=== PATIENT | male | born 1985 | race Caucasian/White ===

== ENCOUNTER 2019-08-13 00:50 | Emergency (ER) | payer BC ==
[2019-08-13 00:57] VITALS: TEMP 98.3
--- NOTE | 2019-08-13 01:01 | ED ---
Lower Extremity Injury HPI - General Chief Complaint: Extremity Injury, Lower Stated Complaint: RT ankle injury Time Seen by Provider: 08/13/19 01:00 Source: patient, family, RN notes reviewed, old records reviewed Mode of arrival: wheelchair Limitations: no limitations - History of Present Illness Initial Comments: This is a 31-year-old male DF for evaluation patient Dese for evaluation of back pain severe right ankle pain with right calcaneus pain. Patient hurt ankle and foot while jumping off his porch, patient suddenly patient does often. Denies significant intoxication currently. Not requiring pain currently. Patient has no other injuries noted no back pain no knee pain MD Complaint: ankle injury, foot injury (Right ankle right foot injury) -: days(s) Injury: Ankle: Right, Foot: Right Type of Injury: blunt Place: home Severity: severe Severity scale (1-10): 8 Improves With: nothing Worsens With: weight bearing Context: direct blow, jumping Associated Symptoms: swelling, unable to bear weight, able to partially bear weight - Related Data Allergies Allergy/AdvReac Type Severity Reaction Status Date / Time No Known Allergies Allergy Verified 08/13/19 00:57 Review of Systems ROS Statement: Those systems with pertinent positive or pertinent negative responses have been documented in the HPI. ROS Other: All systems not noted in ROS Statement are negative. Past Medical History Past Medical History: No Reported History History of Any Multi-Drug Resistant Organisms: None Reported Past Surgical History: Hernia Repair Past Psychological History: No Psychological Hx Reported Smoking Status: Former smoker Past Alcohol Use History: Occasional Past Drug Use History: None Reported General Exam Limitations: no limitations General appearance: alert, in no apparent distress Head exam: Present: atraumatic, normocephalic, normal inspection Eye exam: Present: normal appearance, PERRL, EOMI. Absent: scleral icterus, conjunctival injection, periorbital swelling ENT exam: Present: normal exam, mucous membranes moist Neck exam: Present: normal inspection. Absent: tenderness, meningismus, lymphadenopathy Respiratory exam: Present: normal lung sounds bilaterally. Absent: respiratory distress, wheezes, rales, rhonchi, stridor Cardiovascular Exam: Present: regular rate, normal rhythm, normal heart sounds. Absent: systolic murmur, diastolic murmur, rubs, gallop, clicks GI/Abdominal exam: Present: soft, normal bowel sounds. Absent: distended, tenderness, guarding, rebound, rigid Extremities exam: Present: normal inspection, full ROM, normal capillary refill, other (Severe right foot pain right extremity pain right heel pain). Absent: tenderness, pedal edema, joint swelling, calf tenderness Back exam: Present: normal inspection Neurological exam: Present: alert, oriented X3, CN II-XII intact Psychiatric exam: Present: normal affect, normal mood Skin exam: Present: warm, dry, intact, normal color. Absent: rash Course Vital Signs 08/13/19 08/13/19 00:53 02:23 Temperature 98.3 F Pulse Rate 106 H 79 Respiratory 20 18 Rate Blood Pressure 134/84 126/81 O2 Sat by Pulse 97 98 Oximetry - Reevaluation(s) Reevaluation #1: Medical record is reviewed Patient has pain control currently Procedures - Orthopedic Splinting/Casting Injury #1 Side: right Lower Extremity Injury Location: short leg Lower Extremity Immobilizer: posterior splint, stirrup splint Medical Decision Making - Medical Decision Making 33 male DF presents after jumping off landing on his right foot positive rinku caneus fracture, ankle splinted and patient can be discharged home - Radiology Data Radiology results: report reviewed (X-ray right ankle positive for calcaneus fracture), image reviewed Disposition Clinical Impression: Calcaneus fracture, right Disposition: HOME SELF-CARE Condition: Good Instructions (If sedation given, give patient instructions): Calcaneal Fracture (ED) Is patient prescribed a controlled substance at d/c from ED?: No Referrals: Terrell Zhao DO [Medical Doctor] - 1-2 days
--- NOTE | 2019-08-13 01:33 | XR ---
EXAMINATION TYPE: XR ankle complete RT DATE OF EXAM: 08/13/2019 COMPARISON: NONE HISTORY: Ankle pain TECHNIQUE: 3 views FINDINGS: There is soft tissue swelling around the ankle joint. There is nondisplaced fracture of the posterior calcaneus. Fracture is predominantly in the transverse direction. The subtalar joint is an atomic. IMPRESSION: Soft tissue swelling. Acute transverse fracture through the body of the calcaneus.
[2019-08-13] MEDS ORDERED: Acetaminophen-Codeine 300-30mg TAB PO STA (02:10)
[2019-08-13] MEDS ORDERED: ACET/COD 300 MG/30 MG STARTER PACK 6 TAB BTL PO STA (02:10)
[2019-08-13 02:25] VITALS: BP 126/81; PULSE 79; RESP 18
== END 2019-08-13 02:23 | disposition home or self-care (01) ==
LOC: EC 00:50
DX: S92.014A Nondisplaced fracture of body of right calcaneus, initial encounter for closed fracture (principal); Z87.891 Personal history of nicotine dependence; X58.XXXA Exposure to other specified factors, initial encounter; Y92.008 Other place in unspecified non-institutional (private) residence as the place of occurrence of the external cause
CPT/HCPCS: 99284

== ENCOUNTER → 2019-08-19 | Outpatient (CLI) | payer BC ==
--- NOTE | 2019-08-19 09:15 | CT ---
EXAMINATION TYPE: CT foot RT wo con DATE OF EXAM: 08/19/2019 COMPARISON: Right ankle 08/13/2019 No plain film of the foot submitted for correlation. HISTORY: presurgical calcaneus fracture CT DLP: 197 mGycm Automated exposure control for dose reduction was used. CT of the right foot submitted using [facility] protocol. Three-dimensional reconstructions. FINDINGS: Comminuted mildly displaced fracture is noted involving the posterior calcaneus. There is a minimal i ntra-articular involvement posteriorly posterior facet laterally. Cuboid also shows a comminuted frac ture with intra-articular involvement without significant displacement. No dislocation. Soft tissue s welling is present. IMPRESSION: TARSAL BONE FRACTURES DESCRIBED.
== END | disposition home or self-care (01) ==
LOC: RADCTMAIN 08:10
PROVIDERS: ATTEND Orthopaedic Surgery
DX: S92.001A Unspecified fracture of right calcaneus, initial encounter for closed fracture (principal)

== ENCOUNTER 2023-08-12 20:43 | Emergency (ER) | payer BC ==
[2023-08-12 21:21] VITALS: TEMP 98.4
--- NOTE | 2023-08-12 21:56 | ED ---
Chest Pain HPI - General Chief Complaint: Chest Pain Stated Complaint: Chest Pain,Sob Time Seen by Provider: 08/12/23 21:25 Source: patient, RN notes reviewed, old records reviewed Mode of arrival: ambulatory Limitations: no limitations - History of Present Illness Initial Comments: This is a 38-year-old male to the ER for evaluation of chest pain. Patient states he does admit to some significant anxiety and at times does have severe anxiety but states he was not doing anything anxious and then began developed chest pain. Patient was just sitting down to pet his cat and hanging out tonight. He has no history of drug alcohol abuse no history of smoking no travel history or sick contacts no other complaints MD Complaint: chest pain -: hour(s) Onset: during rest Pain Location: substernal, left chest Pain Radiation: none Severity: mild Severity scale (1-10): 1 Quality: tightness, heaviness Consistency: intermittent Improves With: nothing Worsens With: nothing Anginal Symptoms: sense of impending doom Other Symptoms: palpitations Treatments Prior to Arrival: none - Related Data Allergies Allergy/AdvReac Type Severity Reaction Status Date / Time No Known Allergies Allergy Verified 08/12/23 20:46 Review of Systems ROS Statement: Those systems with pertinent positive or pertinent negative responses have been documented in the HPI. ROS Other: All systems not noted in ROS Statement are negative. Past Medical History Past Medical History: No Reported History History of Any Multi-Drug Resistant Organisms: None Reported Past Surgical History: Hernia Repair Past Psychological History: No Psychological Hx Reported Smoking Status: Vaper Past Alcohol Use History: Occasional Past Drug Use History: Marijuana General Exam Limitations: no limitations General appearance: anxious Head exam: Present: atraumatic, normocephalic, normal inspection Eye exam: Present: normal appearance, PERRL, EOMI. Absent: scleral icterus, conjunctival injection, periorbital swelling ENT exam: Present: normal exam, mucous membranes moist Neck exam: Present: normal inspection. Absent: tenderness, meningismus, lymphadenopathy Respiratory exam: Present: normal lung sounds bilaterally. Absent: respiratory distress, wheezes, rales, rhonchi, stridor Cardiovascular Exam: Present: normal rhythm, tachycardia, normal heart sounds. Absent: systolic murmur, diastolic murmur, rubs, gallop, clicks GI/Abdominal exam: Present: soft, normal bowel sounds. Absent: distended, tenderness, guarding, rebound, rigid Extremities exam: Present: normal inspection, full ROM, normal capillary refill. Absent: tenderness, pedal edema, joint swelling, calf tenderness Back exam: Present: normal inspection Neurological exam: Present: alert, oriented X3, CN II-XII intact Psychiatric exam: Present: normal affect, normal mood Skin exam: Present: warm, dry, intact, normal color. Absent: rash Course Vital Signs 08/12/23 08/12/23 20:44 22:34 Temperature 98.4 F Pulse Rate 120 H 81 Respiratory 18 16 Rate Blood Pressure 154/79 120/82 O2 Sat by Pulse 100 94 L Oximetry - Reevaluation(s) Reevaluation #1: Medical records reviewed Reevaluation #2: Patient symptoms improved Reevaluation #3: Patient informed of results and questions answered Studies Chest x-ray is negative for acute disease Reevaluation #4: Was pt. sent in by a medical professional or institution (, PA, SPED TEACHER, urgent care, hospital, or [facility]...) When possible be specific @ -no Did you speak to anyone other than the patient for history (EMS, parent, family, police, friend...)? What history was obtained from this source @ -no Did you review nursing and triage notes (agree or disagree)? Why? @ -agree Are old charts reviewed (outside hosp., previous admission, EMS record, old EKG, old radiological studies, urgent care reports/EKG's, [facility] records)? Report findings @ -yes Differential Diagnosis (chest pain, altered mental status, abdominal pain women, abdominal pain men, vaginal bleeding, weakness, fever, dyspnea, syncope, headache, dizziness, GI bleed, back pain, seizure, CVA, palpatations, mental health, musculoskeletal)? @ -prior EKG interpreted by me (3pts min.). @ -yes X-rays interpreted by me (1pt min.). @ -yes negative for acute disease CT interpreted by me (1pt min.). @ -no U/S interpreted by me (1pt. min.). @ -no What testing was considered but not performed or refused? (CT, X-rays, U/S, labs)? Why? @ -none What meds were considered but not given or refused? Why? @ -none Did you discuss the management of the patient with other professionals (professionals i.e. , PA, SPED TEACHER, lab, RT, psych nurse, psychosocial rehabilitation counselor, haulage boss, teacher, loan officer assistant, ed case manager)? Give summary @ -no Was smoking cessation discussed for >3mins.? @ -no Was critical care preformed (if so, how long)? @ -no Were there social determinants of health that impacted care today? How? (Homelessness, low income, unemployed, alcoholism, drug addiction, transportation, low edu. Level, literacy, decrease access to med. care, fpc, rehab)? @ -none Was there de-escalation of care discussed even if they declined (Discuss DNR or withdrawal of care, Hospice)? DNR status @ -no What co-morbidities impacted this encounter? (DM, HTN, Smoking, COPD, CAD, Cancer, CVA, ARF, Chemo, Hep., AIDS, mental health diagnosis, sleep apnea, morbid obesity)? @ -none Was patient admitted / discharged? Hospital course, mention meds given and route, prescriptions, significant lab abnormalities, going to OR and other pertinent info. @ - 38 male to ER for evaluation of chest pain. Patient had chest pain that is resolved here in the ER testing is normal patient feels improved and can be discharged home Discharge Undiagnosed new problem with uncertain prognosis? @ -no Drug Therapy requiring intensive monitoring for toxicity (Heparin, Nitro, Insulin, Cardizem)? @ -no Were any procedures done? @ -no Diagnosis/symptom? @ -Chest pain Acute, or Chronic, or Acute on Chronic? @ -Acute Uncomplicated (without systemic symptoms) or Complicated (systemic symptoms)? @ -Complicated Side effects of treatment? @ -no Exacerbation, Progression, or Severe Exacerbation? @ -exacerbation Poses a threat to life or bodily function? How? (Chest pain, [place], [place], pneumonia, PE, COPD, DKA, ARF, appy, cholecystitis, CVA, Diverticulitis, Homicidal, Suicidal, threat to staff... and all critical care pts) @ -yes with significant chest pain Reevaluation #5: Differential Chest Pain: Stable Angina, Unstable Angina, STEMI, NSTEMI Aortic Dissection, Pneumothorax, Musculoskeletal, Esophageal Spasm GERD, Cholecystitis, Pancreatitis, Zoster, this is not meant to be an all-inclusive list. Chest Pain MDM - MDM 38 male to ER for evaluation of chest pain. Patient had chest pain that is resolved here in the ER testing is normal patient feels improved and can be discharged home Disposition Clinical Impression: Chest pain, Atypical chest pain Disposition: HOME SELF-CARE Condition: Fair Instructions (If sedation given, give patient instructions): Chest Pain (ED) Is patient prescribed a controlled substance at d/c from ED?: No Referrals: Jd Dotson [Primary Care Provider] - 1-2 days Time of Disposition: 23:00
[2023-08-12 22:16] LABS: ALT 31 U/L (4-49); African American GFR (CKD) >90 (>60 ml/min/1.73 sqM); Albumin 4.7 g/dL (3.5-5.0); Anion Gap 9 mmol/L; Blood Urea Nitrogen 14 mg/dL (9-20); Calcium 9.7 mg/dL (8.4-10.2); Carbon Dioxide 26 mmol/L (22-30); Chloride 105 mmol/L (98-107); Glucose 98 mg/dL (74-99); Lipase 84 U/L (23-300); Non-African American GFR(CKD) >90 (>60 ml/min/1.73 sqM); Sodium 140 mmol/L (137-145); Total Bilirubin 0.6 mg/dL (0.2-1.3); Total Protein 8.1 g/dL (6.3-8.2)
[2023-08-12 22:20] LABS: Potassium 4.1 mmol/L (3.5-5.1)
[2023-08-12 22:21] LABS: AST 28 U/L (17-59); Alkaline Phosphatase 51 U/L (38-126); Magnesium 1.9 mg/dL (1.6-2.3)
[2023-08-12 22:24] LABS: NT-Pro-B-Type Natriuretic Pept 25 pg/mL
[2023-08-12] MEDS: KETOROLAC 15 MG/ML 1 ML VIAL IVP STA (22:33)
[2023-08-12 22:34] LABS: Basophils % (A) 0 %; Eosinophils # (A) 0.1 k/uL (0-0.7); Eosinophils % (A) 1 %; HCT 46.2 % (39.0-53.0); Lymphocytes # (A) 1.2 k/uL (1.0-4.8); Lymphocytes % (A) 9 %; MCH 28.6 pg (25.0-35.0); MCHC 32.5 g/dL (31.0-37.0); MCV 88.1 fL (80.0-100.0); Mean Platelet Volume 8.3; Monocytes # (A) 0.5 k/uL (0-1.0); Monocytes % (A) 4 %; Neutrophils # (A) 10.6 k/uL (1.3-7.7); Neutrophils % (A) 85 %; Platelet Count 273 k/uL (150-450); RBC 5.24 m/uL (4.30-5.90); RDW 12.3 % (11.5-15.5); WBC 12.5 k/uL (3.8-10.6)
[2023-08-12] MEDS: SODIUM CHLORIDE 0.9% 500 ML 500 ML IV STA (22:34)
[2023-08-12 22:44] VITALS: BP 120/82; PULSE 81; RESP 16
[2023-08-12 22:50] LABS: Prothrombin Time 10.6 sec (10.0-12.5)
--- NOTE | 2023-08-12 22:55 | XR ---
EXAM: XR Chest, 2 Views CLINICAL HISTORY: ITS.REASON XR Reason: Chest Pain TECHNIQUE: Frontal and lateral views of the chest. COMPARISON: No relevant prior studies available. FINDINGS: Lungs: Unremarkable. No consolidation. Pleural space: Unremarkable. No pneumothorax. Heart: Unremarkable. No cardiomegaly. Mediastinum: Unremarkable. Normal mediastinal contour. Bones/joints: Unremarkable. No acute fracture. IMPRESSION: Normal chest x-rays.
== END 2023-08-12 23:49 | disposition home or self-care (01) ==
LOC: EC 20:43
DX: R07.89 Other chest pain (principal); R00.0 Tachycardia, unspecified; F17.290 Nicotine dependence, other tobacco product, uncomplicated; F12.90 Cannabis use, unspecified, uncomplicated
CPT/HCPCS: 36415; 93005; 85379; 83880; 80053; 83690; 83735; 84484; 85025; 85610; 85730; 71046; 99285; 96374; J1885